=== PATIENT | male | born 1935 | race Caucasian/White ===

== ENCOUNTER → 2018-03-22 | Outpatient (CLI) | payer MEDICARE, BC ==
--- NOTE | 2018-03-22 17:55 | Diagnostic Imaging Report ---
Retroperitoneal ultrasound Indication: Renal cyst follow-up Technique: Select images from retroperitoneal ultrasound provided for interpretation: Comparison: Multiple prior renal ultrasounds, the most recent 02/15/2017. Findings: The right kidney measures 12.3 cm in greatest length. The echotexture is normal. There is no evidence for mass. There is no collecting system dilatation or evidence of obstruction. No renal calculi evident. No adjacent free fluid or fluid collections. The left kidney measures 11.0 cm in greatest length. The echotexture is normal. There is a lobulated cyst in the interpolar region measuring 4.0 x 6.0 x 8.1 cm (previously, 4.2 x 6.6 x 8.1 cm). No mural thickening or septation. No soft tissue nodule. There is no collecting system dilatation or evidence of obstruction. No renal calculi evident. No adjacent free fluid or fluid collections. Bladder is under distended. Bladder jets are visible. Prostate gland: Poorly visualized. It measures approximately 2.2 x 3.2 x 2.5 cm. No free fluid in the pelvis. Survey images of the liver and spleen demonstrate no abnormalities. IMPRESSION: 1. No increase in size of the left renal cyst. No new renal masses. 2. Under distended bladder. Signed by: Dr. Sierra Franco MD on 03/22/2018 5:52 PM
== END ==
LOC: US 14:40
PROVIDERS: ATTEND Urology
DX: N28.1 Cyst of kidney, acquired (principal)
CPT/HCPCS: 76770

== ENCOUNTER → 2019-01-08 | Outpatient (CLI) | payer MEDICARE, BC ==
--- NOTE | 2019-01-08 15:17 | Diagnostic Imaging Report ---
EXAMINATION: Renal ultrasound. CLINICAL HISTORY :Renal cyst COMPARISON: Renal ultrasound 02/15/2017 TECHNIQUE: Grayscale and color Doppler evaluation of the kidneys and bladder was performed in transverse and longitudinal planes. DISCUSSION: RIGHT KIDNEY: The right kidney measures 10.1 cm in length and shows normal echogenicity. No hydronephrosis, shadowing calculi or solid mass lesions. LEFT KIDNEY: The left kidney measures 10.9 cm in length and shows normal echogenicity. Exophytic cyst projecting from the upper pole measures 8.2 x 3.5 x 5.6 cm, not significantly changed in the interim when accounting for differences in measurement technique. No septation, solid mural component, or internal echoes. No internal vascularity by color Doppler analysis. BLADDER: Poorly distended. Right and left ureteral jets are identified. IMPRESSION: No interval increase in size of a large exophytic left renal cyst. No new renal lesions. Signed by: Dr. Galdino Thorpe M.D. on 01/08/2019 3:13 PM
== END ==
LOC: US 14:07
PROVIDERS: ATTEND Urology
DX: N28.1 Cyst of kidney, acquired (principal)
CPT/HCPCS: 76770